=== PATIENT | male | born 1960 | race African-American/Black ===

== ENCOUNTER 2018-11-07 11:40 | Emergency (ER) | payer MEDICAID, OTHER ==
[~2018-11-07] VITALS: Ht 162.6 cm; Wt 77.1 kg
[2018-11-07 11:40] VITALS: BP 72/42
--- NOTE | 2018-11-07 11:40 | NUR ---
ED Nurse Note: pt brought in to ER by ambulance from [facility] due to dizziness and general weakness. pt drowsy but aao x4 and per EMS, pt was ambulatory at the scene. per pt, he was discharged from [facility] this morning after hospitalization 3 days for [facility] [place]. pt was going home, waiting for the bus and he started feeling weak and dizzy. skin clean and intact. pt able to move and change position in bed.
--- NOTE | 2018-11-07 11:45 | NUR ---
ED Nurse Note: BP low to systolic 72mmHg. ERMD at bedside and made aware.
--- NOTE | 2018-11-07 11:59 | Emergency Room Report ---
History of Present Illness General Chief Complaint: Generalized Weakness Source: Patient Present Illness HPI Patient presents by paramedics for complaints of weakness and dizziness Was that he was discharged from [facility] about 2 hours ago On the way home he started feeling dizzy Paramedics were summoned and patient presents to the ER for further eval Denies any fevers reports that his kidney stone was diagnosed on the left side Denies any dysuria denies taking any medications at home Denies any focal weakness Patient's history is initially somewhat limited as he appears to be somewhat confused appears to have some Pressure with his speech Unable to give me a appropriate timeline of specifics that have happened over the last several days Allergies: Coded Allergies: No Known Allergies (Unverified , 11/07/18) Patient History Past Medical History: see triage record Pertinent Family History: none Reviewed Nursing Documentation: PMH: Agreed; PSxH: Agreed Review of Systems All Other Systems: negative except mentioned in HPI Physical Exam Vital Signs Date Time Temp Pulse Resp B/P (MAP) Pulse Ox O2 Delivery O2 Flow Rate FiO2 11/07/18 11:35 99.0 79 18 170/100 (123) 98 Room Air Sp02 EP Interpretation: reviewed, normal General Appearance: other - Appears lethargic and sluggish Head: normocephalic, atraumatic Eyes: bilateral eye PERRL, bilateral eye EOMI ENT: hearing grossly normal, dry mucus membranes Neck: supple Respiratory: lungs clear, no respiratory distress, no retraction Cardiovascular #1: regular rate, rhythm Gastrointestinal: non tender, soft Musculoskeletal: other - No obvious focal weakness however patient is generally weak approximately 4 out of 5 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 and 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 of both feet Neurologic: responsive - To physical stimuli, speech appears to be somewhat pressured at times Skin: no rash, warm/dry Lymphatic: no adenopathy Medical Decision Making Diagnostic Impression: Primary Impression: Episode of generalized weakness Additional Impressions: Hypotension Hypoglycemia ER Course Patient is a fairly complex patient with multiple differential to consideration including but not limited to cardiac cardiopulmonary and vascular emergencies Patient blood work appropriate blood pressure has started to improve Patient reports that he is not sure why they discharged him on the bus he was asking for a taxi pass At this time patient awake alert Reports that he does not want to be in the hospital any longer I spoke to Dr. Best regarding transfer Patient was accepted for admission and transfer Labs Test 6/8/19 12:04 White Blood Count 4.2 K/UL (4.8-10.8) Red Blood Count 3.88 M/UL (4.70-6.10) Hemoglobin 11.1 G/DL (14.2-18.0) Hematocrit 34.9 % (42.0-52.0) Mean Corpuscular Volume 90 FL (80-99) Mean Corpuscular Hemoglobin 28.6 PG (27.0-31.0) Mean Corpuscular Hemoglobin Concent 31.8 G/DL (32.0-36.0) Red Cell Distribution Width 17.8 % (11.6-14.8) Platelet Count 245 K/UL (150-450) Mean Platelet Volume 7.7 FL (6.5-10.1) Neutrophils (%) (Auto) 52.2 % (45.0-75.0) Lymphocytes (%) (Auto) 26.3 % (20.0-45.0) Monocytes (%) (Auto) 13.3 % (1.0-10.0) Eosinophils (%) (Auto) 5.8 % (0.0-3.0) Basophils (%) (Auto) 2.4 % (0.0-2.0) Sodium Level 141 MMOL/L (136-145) Potassium Level 4.6 MMOL/L (3.5-5.1) Chloride Level 104 MMOL/L (98-107) Carbon Dioxide Level 30 MMOL/L (21-32) Anion Gap 7 mmol/L (5-15) Blood Urea Nitrogen 15 mg/dL (7-18) Creatinine 2.0 MG/DL (0.55-1.30) Estimat Glomerular Filtration Rate 41.6 mL/min (>60) Glucose Level 72 MG/DL (74-106) Lactic Acid Level 1.20 mmol/L (0.4-2.0) Calcium Level 10.1 MG/DL (8.5-10.1) Total Bilirubin 0.3 MG/DL (0.2-1.0) Aspartate Amino Transf (AST/SGOT) 27 U/L (15-37) Alanine Aminotransferase (ALT/SGPT) 23 U/L (12-78) Alkaline Phosphatase 82 U/L (46-116) Total Creatine Kinase 521 U/L (26-308) Creatine Kinase MB 2.7 NG/ML (0.0-3.6) Creatine Kinase MB Relative Index 0.5 Troponin I 0.000 ng/mL (0.000-0.056) Pro-B-Type Natriuretic Peptide 8 pg/mL (0-125) Total Protein 7.1 G/DL (6.4-8.2) Albumin 4.0 G/DL (3.4-5.0) Globulin 3.1 g/dL Albumin/Globulin Ratio 1.3 (1.0-2.7) Lipase 168 U/L (73-393) Rhythm Strip Diag. Results EP Interpretation: yes Rate: 60 Rhythm: NSR, no PVC's, no ectopy Chest X-Ray Diagnostic Results Chest X-Ray Diagnostic Results : Chest X-Ray Ordered: Yes # of Views/Limited/Complete: 1 View Indication: Chest Pain EP Interpretation: Yes Interpretation: no consolidation, no effusion, no pneumothorax, other - Pulmonary congestion Impression: Other - Pulmonary congestion Electronically Signed by: Anil Waite DO CT/MRI/US Diagnostic Results CT/MRI/US Diagnostic Results : Impression CT headFINDINGS: Brain:No acute infarct or hemorrhage identified. No extra-axial fluid collection. No mass effect or midline shift. Ventricles and sulci: Stable prominence of the ventricles and sulci is likelysecondaryto cerebral volume loss. Skull:Old fracture deformities of the nasal bones. Degenerative changes of the left temporomandibular joint. No bonylesion or fracture. Subcutaneous tissues:Normal. Sinuses: Polyps versus mucous retention cysts and mild mucosal thickening in the maxillarysinuses. Orbits:Grosslyunremarkable. Other:Atherosclerotic calcifications in the intracranial vasculature. IMPRESSION: 1. No acute intracranial abnormality. 2. Stable cerebral volume loss. Last Vital Signs Date Time Temp Pulse Resp B/P (MAP) Pulse Ox O2 Delivery O2 Flow Rate FiO2 11/07/18 11:35 99.0 79 18 170/100 (123) 98 Room Air Status: improved Disposition: XFER SHT-TRM HOSP Condition: Improved Anil Waite DO Nov 07, 2018 11:59
--- NOTE | 2018-11-07 12:25 | NUR ---
ED Nurse Note: pt went down for CT scan in stable condition.
[2018-11-07 12:38] LABS: BASOPHILS % (AUTO) 2.4 % (0.0-2.0); EOSINOPHILS % (AUTO) 5.8 % (0.0-3.0); HEMATOCRIT 34.9 % (42.0-52.0); HEMOGLOBIN 11.1 G/DL (14.2-18.0); LYMPHOCYTES % (AUTO) 26.3 % (20.0-45.0); MEAN CORPUSCULAR VOLUME 90 FL (80-99); MONOCYTES % (AUTO) 13.3 % (1.0-10.0); NEUTROPHILS % (AUTO) 52.2 % (45.0-75.0); PLATELET COUNT 245 K/UL (150-450); RED BLOOD COUNT 3.88 M/UL (4.70-6.10); RED CELL DISTRIBUTION WIDTH 17.8 % (11.6-14.8); WHITE BLOOD COUNT 4.2 K/UL (4.8-10.8)
--- NOTE | 2018-11-07 12:40 | NUR ---
ED Nurse Note: pt came back from CT scan in stable condition.
[2018-11-07 12:44] LABS: ANION GAP 7 mmol/L (5-15); BLOOD UREA NITROGEN 15 mg/dL (7-18); CALCIUM 10.1 MG/DL (8.5-10.1); CARBON DIOXIDE 30 MMOL/L (21-32); CHLORIDE 104 MMOL/L (98-107); POTASSIUM 4.6 MMOL/L (3.5-5.1); SODIUM 141 MMOL/L (136-145)
[2018-11-07 13:00] LABS: ALANINE AMINOTRANSFERASE 23 U/L (12-78); ALBUMIN/GLOBULIN RATIO 1.3 (1.0-2.7); ALKALINE PHOSPHATASE 82 U/L (46-116); ASPARTATE AMINO TRANSFERASE 27 U/L (15-37); BILIRUBIN,TOTAL 0.3 MG/DL (0.2-1.0); CKMB 2.7 NG/ML (0.0-3.6); CREATINE KINASE 521 U/L (26-308)
--- NOTE | 2018-11-07 13:10 | Diagnostic Imaging Report ---
EXAM: CT Head Without Intravenous Contrast CLINICAL HISTORY: AMS TECHNIQUE: Axial computed tomography images of the head/brain without intravenous contrast. CTDI is 70.38 mGy and DLP is 1344.19 mGy-cm. One or more of the following dose reduction techniques were used: automated exposure control, adjustment of the mA and/or kV according to patient size, use of iterative reconstruction technique. COMPARISON: CT head on 05/03/2009 FINDINGS: Brain: No acute infarct or hemorrhage identified. No extra-axial fluid collection. No mass effect or midline shift. Ventricles and sulci: Stable prominence of the ventricles and sulci is likely secondary to cerebral volume loss. Skull: Old fracture deformities of the nasal bones. Degenerative changes of the left temporomandibular joint. No bony lesion or fracture. Subcutaneous tissues: Normal. Sinuses: Polyps versus mucous retention cysts and mild mucosal thickening in the maxillary sinuses. Orbits: Grossly unremarkable. Other: Atherosclerotic calcifications in the intracranial vasculature. IMPRESSION: 1. No acute intracranial abnormality. 2. Stable cerebral volume loss.
--- NOTE | 2018-11-07 13:11 | Diagnostic Imaging Report ---
EXAM: XR Chest, 1 View CLINICAL HISTORY: CP TECHNIQUE: Frontal view of the chest. COMPARISON: Chest radiograph on 01/22/2010 FINDINGS: Hardware: None. Lungs/pleura: Low lung volumes with crowding of vascular markings versus pulmonary vasculature congestion. No focal consolidation. No pleural effusion or pneumothorax. Heart/mediastinum: Stable mild enlargement of the cardiac silhouette. Soft tissues: Unremarkable. Bones: No acute fracture. Upper abdomen: Normal. IMPRESSION: Low lung volumes with crowding of vascular markings versus pulmonary vasculature congestion.
--- NOTE | 2018-11-07 13:42 | NUR ---
PATIENT REFUSED TO BE TRANSFERD TO [facility] WANTS TO SIGN OUT . PER PATIENT HE JUST LEFT THE HOSPITAL DONT WANT TO GO BACK TO THE SAME HOSPITAL WANTS TO GO BACK TO HIS PRIMARY ON FRIDAY WHICH HE ALREADY HAS AN APPOINTMENT
--- NOTE | 2018-11-07 13:45 | NUR ---
PATIENT SIGNED OUT AMA
--- NOTE | 2018-11-07 13:47 | Diagnostic Imaging Report ---
EXAM: CT Abdomen and Pelvis Without Intravenous Contrast CLINICAL HISTORY: AMS TECHNIQUE: Axial computed tomography images of the abdomen and pelvis without intravenous contrast. CTDI is 13.21 mGy and DLP is 692.89 mGy-cm. One or more of the following dose reduction techniques were used: automated exposure control, adjustment of the mA and/or kV according to patient size, use of iterative reconstruction technique. COMPARISON: None FINDINGS: Evaluation of solid organs somewhat limited without IV contrast. Liver: No focal lesion. Spleen: No focal lesion. Small splenule. Gallbladder: No stones or biliary dilatation. Pancreas: No acute inflammation. No mass. Adrenal glands: No mass. Kidneys: Punctate nonobstructing bilateral renal stones. No hydronephrosis or ureteral stone. No mass. Bowel: Colonic diverticulosis without evidence of diverticulitis. Duodenal diverticulum. Normal appendix. No bowel obstruction or inflammation. Urinary bladder: Right bladder diverticulum. Bladder wall thickening with surrounding fat stranding. Reproductive organs: Calcifications of the prostate. Muscles: No mass. Subcutaneous tissues: Small fat-containing right inguinal hernia. Small fat-containing umbilical hernia. Peritoneal space: No free fluid. Lymph nodes: No lymphadenopathy. Vessels: No aneurysm. Bones: No acute fracture. Nonspecific sclerosis of the right iliac bone. Lumbosacral transitional anatomy. Degenerative changes of the spine. Lung bases: Mild cardiomegaly. Small to moderate pericardial effusion. Mild bibasilar atelectasis. Other: Small hiatal hernia. IMPRESSION: 1. Right bladder diverticulum. Bladder wall thickening with surrounding fat stranding. Please correlate with urinalysis to evaluate for cystitis. 2. Punctate nonobstructing bilateral renal stones. No hydronephrosis or ureteral stone. 3. Nonspecific sclerosis of the right iliac bone. 4. Small to moderate pericardial effusion.
[2018-11-07 14:00] VITALS: BP 110/68
--- NOTE | 2018-11-07 14:00 | NUR ---
ED Nurse Note: pt refused x3 F/C nor provide urine sample. pt aao x4 and vs stable as documented. pt is no longer drowsy, pt is ambulatory and moving well. pt stated "I will go home and drink plenty of water and will take medications. I will be fine." pt explained the risk of leaving AMA but still insisted. IV and id band removed. pt ambulatory with steady gait. pt took all her belongings.
--- NOTE | 2018-11-10 15:08 | Cardiology Report ---
APPROVED REPORT EKG Measurement Heart [id number] Normal sinus rhythm with sinus arrhythmia Nonspecific T wave abnormality Abnormal ECG
== END 2018-11-07 14:00 | disposition left against medical advice (07) ==
LOC: EDBD 11:40 → EDBEDREQ 12:03 → EMR 12:15 → CANBEDREQ 13:54 → EMR 14:00
DX: R53.1 Weakness (principal); I95.9 Hypotension, unspecified; E16.2 Hypoglycemia, unspecified
CPT/HCPCS: 36415; 70450; 71045; 74176; 80053; 82550; 82553; 83605; 83690; 83880; 84484; 85025; 87040; 93005; 96361; 96374; 99285